=== PATIENT | male | born 2000 ===

== ENCOUNTER 2018-10-24 21:34 | Emergency (ER) | payer SELFPAY ==
[2018-10-24 21:52] VITALS: BP 145/81; PULSE 100; RESP 20; TEMP 98.4; O2SAT 98
[2018-10-24] MEDS ORDERED: Phenylephrine 1% Nasal Spray (15 ml) NAS STA (22:10)
[2018-10-24] MEDS ORDERED: Phenylephrine 1% Nasal Spray (15 ml) ONE (22:23)
--- NOTE | 2018-10-24 22:37 | C.PDOC ---
History Of Present Illness 17 year old male presents to the ED c/o nose bleeds for the past 3 days. Patient also c/.o headache, cough, congestion. Patient reports having similar symptoms in the past related to weather change. Patient denies fever, chills, injury, fall, trauma, SOB, rash, headache. Time Seen by Provider: 10/24/18 21:56 Chief Complaint (Nursing): ENT Problem History Per: Patient History/Exam Limitations: None Onset/Duration Of Symptoms: Days (3) Current Symptoms Are (Timing): Still Present Severity: None Anticoagulant/Antiplatlet Use?: No Recent Aspirin Use: No Past Medical History Reviewed: Historical Data, Nursing Documentation, Vital Signs Vital Signs: Last Vital Signs Temp 98.4 F 10/24/18 21:46 Pulse 100 H 10/24/18 21:46 Resp 20 10/24/18 21:46 BP 145/81 10/24/18 21:46 Pulse Ox 98 10/24/18 21:46 - Medical History PMH: Asthma Surgical History: Tonsillectomy Family History: States: Unknown Family Hx - Social History Hx Alcohol Use: Yes Hx Substance Use: Yes Review Of Systems Constitutional: Negative for: Fever, Chills ENT: Positive for: Nose Discharge, Nose Congestion. Negative for: Throat Pain, Throat Swelling Respiratory: Positive for: Cough. Negative for: Shortness of Breath Gastrointestinal: Negative for: Nausea, Vomiting, Abdominal Pain Skin: Negative for: Rash Neurological: Negative for: Weakness, Numbness, Headache Physical Exam - Physical Exam Appears: Non-toxic, No Acute Distress Skin: Normal Color, Warm, Dry Head: Atraumatic, Normacephalic Eye(s): bilateral: Normal Inspection Ear(s): Bilateral: Normal Nose: Epistaxis (dry on right nostril), No Tenderness, No Septal Hematoma Oral Mucosa: Moist Tongue: Normal Appearing, No Swelling Lips: Normal Appearing, No Swelling, No Laceration Throat: Normal, No Erythema, No Exudate Neck: Normal ROM, Supple Lymphatic: No Adenopathy Chest: Symmetrical Cardiovascular: Rhythm Regular Respiratory: Normal Breath Sounds, No Rales, No Rhonchi, No Wheezing Extremity: Normal ROM, No Tenderness, No Swelling Neurological/Psych: Oriented x3, Normal Speech, Normal Cognition Gait: Steady ED Course And Treatment O2 Sat by Pulse Oximetry: 98 (ON RA) Pulse Ox Interpretation: Normal Medical Decision Making Medical Decision Making: Plan: * Neosynephrine Disposition - Disposition Referrals: Pillo Phan MD [Staff Provider] - Disposition: HOME/ ROUTINE Disposition Time: 22:40 Condition: STABLE Additional Instructions: Take the nasal spray as needed for congestion and nose bleeds. Return if worsened. Instructions: Nosebleeds (DC) Forms: [employer] (Japanese) - Clinical Impression Clinical Impression: Epistaxis, Upper respiratory infection - PA / CRAB BACKER / Resident Statement MD/DO has reviewed & agrees with the documentation as recorded. - Scribe Statement The provider has reviewed the documentation as recorded by the Scribe Ariel Baumann All medical record entries made by the Scribe were at my direction and personally dictated by me. I have reviewed the chart and agree that the record accurately reflects my personal performance of the history, physical exam, medical decision making, and the department course for this patient. I have also personally directed, reviewed, and agree with the discharge instructions and disposition.
== END 2018-10-24 22:44 | disposition home or self-care (01) ==
LOC: C.ER 21:34
DX: R04.0 Epistaxis (principal); J06.9 Acute upper respiratory infection, unspecified